=== PATIENT | female | born 1985 | race Hispanic/Latino ===

== ENCOUNTER 2019-09-23 11:53 | Day surgery (SDC) | payer MEDICAID ==
--- NOTE | 2019-09-23 13:27 | Anesthesia Consultation ---
Anesthesia Consult and Med Hx Date of service: 09/23/19 - Airway Anesthetic Teeth Evaluation: Good ROM Head & Neck: Adequate Mental/Hyoid Distance: Adequate Mallampati Class: Class II Intubation Access Assessment: Good - Pulmonary Exam CTA: Yes - Cardiac Exam Cardiac Exam: RRR - Pre-Operative Health Status ASA Pre-Surgery Classification: ASA2 Proposed Anesthetic Plan: General (HTN , elevated BMI , Migraines ) - Pulmonary Hx Smoking: No Hx Sleep Apnea: No (STEPHANIE PRE SCREEN LOW RISK) - Cardiovascular System Hx Hypertension: Yes - Central Nervous System Hx Back Pain: Yes (LOWER) - Hematic Hx Anemia: No - Other Systems Hx Alcohol Use: Yes (OCC. MIXED DRINK) Hx Substance Use: No Hx Cancer: No
[2019-09-23] MEDS ORDERED: ONDANSETRON 4 MG/2 ML INJ IV PRN (13:28)
[2019-09-23] MEDS ORDERED: HYDROmorphone 1 MG/1 ML INJ IV PRN (13:28)
--- NOTE | 2019-09-23 13:28 | Anesthesia Day of Surgery ---
Anesthesia Day of Surgery - Day of Surgery Patient Examined: Yes Patient H&P Reviewed: Yes Patient is NPO: Yes
[2019-09-23] MEDS ORDERED: LACTATED RINGERS 1,000 ML IV SCH (14:00)
[2019-09-23] MEDS ORDERED: MIDAZOLAM 2 MG/2 ML INJ IV NR (14:00)
[2019-09-23] MEDS ORDERED: ceFAZolin/STERILE WATER 2 GM/20 ML SYRINGE IV NR (14:00)
[2019-09-23] MEDS ORDERED: PROPOFOL 200 MG/20 ML VIAL IV ONE (14:41)
[2019-09-23] MEDS ORDERED: dexAMETHasone 20 MG/5 ML VIAL ONE (14:41)
[2019-09-23] MEDS ORDERED: LIDOCAINE MPF (2%) 20 MG/1 ML VIAL 5 ML ONE (14:41)
[2019-09-23] MEDS ORDERED: fentaNYL 100 MCG/2 ML INJ ONE (14:41)
[2019-09-23] MEDS ORDERED: ONDANSETRON 4 MG/2 ML INJ ONE (14:41)
--- NOTE | 2019-09-23 15:30 | Short Stay Summary ---
Short Stay Documentation Date of service: 09/23/19 - History H&P: obtained from office - Allergies and Medications Current Medications: Allergies No Known Allergies Allergy (Verified 09/20/19 16:43) Home Medications Medication Instructions Recorded Confirmed Last Taken Type HYDROcodone/APAP 5-325 5 mg PO QID 09/20/19 09/23/19 09/20/19 09:00 History Propranolol 10 mg PO DAILY 09/20/19 09/23/19 09/22/19 09:00 History Topiramate [Topamax] 25 mg PO BID 09/20/19 09/23/19 09/22/19 20:00 History Zolpidem 10 mg PO DAILY 09/20/19 09/23/19 09/22/19 20:00 History Active Medications Cefazolin Sodium (Ancef/Sterile Water 2 Gm/20 Ml) 2 gm IV PREOP NR Stop: 09/23/19 23:01 Hydromorphone HCl (Dilaudid) 0.5 mg IV Q10MIN PRN PRN Reason: Pain , Severe (7-10) Stop: 09/23/19 23:00 Lactated Ringer's (Lactated Ringers) 1,000 mls @ 100 mls/hr IV DIRECT STEPHANIE Last Admin: 09/23/19 13:25 Dose: 100 mls/hr Documented by: Midazolam HCl (Versed) 2 mg IV PREOP NR Stop: 09/23/19 23:59 Last Admin: 09/23/19 13:42 Dose: 2 mg Documented by: Ondansetron HCl (Zofran) 4 mg IV ONCE PRN PRN Reason: Nausea And Vomiting - Brief post op/procedure progress note Date of procedure: 09/23/19 Pre-op diagnosis: left renal stone Post-op diagnosis: same Procedure: ESWL Anesthesia: GETA Surgeon: MARC KAYE Pathology: none Condition: stable - Hospital course Hospital course: norco & post op info on chart - Disposition Condition at discharge: Stable Disposition: DC-01 TO HOME OR SELFCARE Short Stay Discharge Plan Follow up with: OMAR ARELLANO MD [Primary Care Provider] - 7 Days
--- NOTE | 2019-09-23 15:36 | Operative Report ---
PREOPERATIVE DIAGNOSIS: Left renal stone, 6 mm. POSTOPERATIVE DIAGNOSIS: Left renal stone, 6 mm. PROCEDURE: Extracorporal shock wave lithotripsy. SURGEON: Juan Jeffries MD ANESTHESIA: General. ESTIMATED BLOOD LOSS: Minimal. FLUIDS: Crystalloid. COMPLICATIONS: No complications. INDICATIONS: This patient is a 33-year-old female seen by Dr. Vieira in the office. She was found to have bilateral stones, left flank pain, presents now for surgical intervention. Risks, benefits, and complications were explained. She was counseled on ureteroscopy and extracorporal shock wave lithotripsy. DESCRIPTION OF PROCEDURE: The patient was taken to the operative suite, placed in a supine position. After adequate general anesthesia, her stone could be localized in 2 planes using fluoroscopy. Extracorporal shock wave lithotripsy was administered with a maximum kV of 9 and 3000 shocks; 5-minute renal pause after 200 shocks was performed. The patient was short in stature and weighed over 250 pounds and therefore we increased the shockwave intensity. Adequate fragmentation could be appreciated. She tolerated the procedure well. She was extubated and taken to recovery room. She will go home on [place] and follow up in the office. JOB# [id number] JENNIFER/JALEEL
[2019-09-23] MEDS ORDERED: HYDROmorphone 1 MG/1 ML INJ ONE (15:44)
[2019-09-23 17:42] VITALS: BP 122/81
--- NOTE | 2019-09-24 08:33 | Post Anesthesia Evaluation ---
- Post Anesthesia Evaluation Patient Participated: Yes Airway Patent: Yes Stable Respiratory Function: Yes Nausea/Vomiting: No Temp > 96.8F: Yes Pain Manageable: Yes Adequeate Hydration: Yes Anesthesia Complications: No Block Receding Appropriately: Not Applicable Patient on Ventilator: No
== END 2019-09-23 17:00 | disposition home or self-care (01) ==
LOC: OR 11:53
PROVIDERS: ATTEND Urology
DX: N20.0 Calculus of kidney (principal); F32.9 Major depressive disorder, single episode, unspecified; G43.909 Migraine, unspecified, not intractable, without status migrainosus; I10 Essential (primary) hypertension; Z90.49 Acquired absence of other specified parts of digestive tract; Z79.899 Other long term (current) drug therapy; Z87.440 Personal history of urinary (tract) infections; Z72.89 Other problems related to lifestyle; Z98.890 Other specified postprocedural states
CPT/HCPCS: 50590; 81025; J0690; J1100; J1170; J2250; J2405; J2704; J3010; J7120